=== PATIENT | female | born 1950 | race Caucasian/White ===

== ENCOUNTER → 2018-12-04 | Day surgery (SDC) | payer MEDICARE ==
[2018-11-28 16:10] LABS: BASOPHILS # (AUTO) 0.1 (0.0-0.1); BASOPHILS % 0.5 % (0.0-1.0); EOSINOPHILS # (AUTO) 0.1 (0.0-0.4); EOSINOPHILS % 0.4 % (0.0-6.0); HEMATOCRIT 36.9 % (34.2-44.1); HEMOGLOBIN 12.2 g/dL (12.0-16.0); LYMPHOCYTES # (AUTO) 2.7 (1.0-3.2); LYMPHOCYTES % 21.6 % (18.0-39.1); MEAN CORPUSCULAR HEMOGLOBIN 30.9 pg (28-32); MEAN CORPUSCULAR HGB CONC 33.1 g/dL (31-35); MEAN CORPUSCULAR VOLUME 93.4 fL (81-99); MONOCYTES # (AUTO) 0.8 (0.2-0.8); MONOCYTES % 6.9 % (4.4-11.3); NEUTROPHILS # (AUTO) 8.6 (2.1-6.9); NEUTROPHILS % 70.1 % (38.7-80.0); PLATELET COUNT 419 x10e3/uL (140-360); RED BLOOD COUNT 3.95 x10e6/uL (3.6-5.1); RED CELL DISTRIBUTION WIDTH 13.1 % (11.7-14.4)
[~2018-12-04] MED LIST: BACLOFEN10 MG PO; FENTANYL CITRATE/PF 100MCG/2 ML INJ ONE; GABAPENTIN300 MG PO; HYOSCYAMINE 0.125 MG TAB ONE; IRON PO; MIDAZOLAM HCL 2 MG/2 ML VIAL ONE; NORCO 10-325 T1 EACH; PAXIL40 MG PO; PROPOFOL IV EMULSION 10 MG/ML 50 ML VIAL ONE; REQUIP3 MG PO; SUMATRIPTAN SU100 MG PO
--- OUTSIDE RECORDS SUMMARY | 2018-12-04 09:02 | XMS REPORT | Clinical Summary ---
Author Author [facility] [facility] Organization [facility] Address Unknown Phone Unavailable Care Team Providers Care Algologist Name Role Phone Gia Hopper MD PCP Allergies No Known Allergies Medications End Date Status Medication Sig Dispensed Refills Start Date Active diphenhydrAMINE Take 25 mg by 0 (BENADRYL) 25 mg tablet mouth as needed for allergies or sleep. Active baclofen (LIORESAL) 10 MG Take 10 mg by 0 tablet mouth daily as needed. Active rOPINIRole (REQUIP) 1 MG Take 2 mg by 0 tablet mouth nightly as needed. Active PARoxetine (PAXIL) 30 MG Take 30 mg by 0 tablet mouth every evening. Active HYDROcodone-acetaminophen Take 1 tablet 0 (NORCO) 10-325 mg per by mouth tablet every 6 (six) hours as needed for moderate pain. Active Problems Problem Noted Date S/P lumbar discectomy 08/26/2017 COPD (chronic obstructive pulmonary disease) 08/24/2017 Anemia 08/24/2017 Lumbar stenosis 08/22/2017 Medial meniscus tear 03/29/2017 Family History Medical History Relation Name Comments Alcohol abuse Father Heart disease Mother Hypertension Mother Relation Name Status Comments Brother OF [place]. Father Mother Alive BLOOD CLOTS TO HER LEGS, HAD 2STENTS. Sister AT AGE 2. Social History Date Tobacco Use Types Packs/Day Years Used Current Every Day Smoker Cigarettes, 1 50 Electronic Cigarettes Smokeless Tobacco: Never Used Comments: QUIT 2.5 YEARS AGO.SMOKER SINCE AGE 14. Alcohol Use Drinks/Week oz/Week Comments No Sex Assigned at Date Recorded Not on file Industry Job Start Date Occupation Not on file Not on file Not on file Travel End Travel History Travel Start No recent travel history available. Last Filed Vital Signs Not on file Plan of Treatment Health Maintenance Due Date Last Done Comments BREAST CANCER SCREENING 02/09/2000 COLONOSCOPY SCREENING 02/09/2000 SHINGLES VACCINES (#1) 02/09/2000 65+ PNEUMOCOCCAL VACCINE 2015 (1 of 2 - PCV13) INFLUENZA VACCINE 12/11/2018 Implants Device Identifier Shelf Expiration Date Model / Serial / Lot Implanted Type Area Manufactur er 08/11/2019 [id number] / N/A / [id number] Matrix Dural Duragen Plus 4x5in Human Left: Spine INTEGRA Regnrtn - Sn/A - [id number] Tissue Lumbar LIFESCIENC Implanted: Qty: 1 on 08/22/2017 by Implants Hannah Calrk MD 04/11/2018 [id number] / / [id number] System Sealant Dural Hydrg Tech 5ml Surgical Posterior: INTEGRA Duraseal - [id number] Implants; Spine Lumbar LIFESCIENC Implanted: Qty: 1 on 08/22/2017 by Expanders; Hannah Clark MD Extenders; Surgical Wires 08/10/2018 [id number] / / [id number] System Sealant Dural Hydrg Tech 5ml Surgical Posterior: INTEGRA Duraseal - [id number] Implants; Spine Lumbar LIFESCIENC Implanted: Qty: 1 on 08/22/2017 by Expanders; Hannah Clark MD Extenders; Surgical Wires 05/12/2018 [id number] / / [id number] System Sealant Dural Hydrg Tech 5ml Surgical Posterior: INTEGRA Duraseal - [id number] Implants; Spine Lumbar LIFESCIENC Implanted: Qty: 1 on 08/22/2017 by Expanders; Hannah Clark MD Extenders; Surgical Wires Results Not on fileafter 12/03/2017 Insurance Type Payer Benefit Subscriber ID Effective Phone Address Plan / Dates Group HMO [employer] CIGNA xxxxxxxx 2017-P [facility] Advance Directives Patient has advance care planning documents on file. For more information, nancy reaves contact: Jose C Palacios [address] [place] [address]
--- OUTSIDE RECORDS SUMMARY | 2018-12-04 09:02 | XMS REPORT | Continuity of Care Document ---
Author Author [employer] Organization [employer] Address Unknown Phone Unavailable Care Team Providers Care Mirror Inspector Name Role Phone [employer] Unavailable Unavailable Problems Problem Status Onset Date Classification Date Reported Comments Source LUMBAR Active 09/13/2017 [facility] S83.206A - "UNSP TEAR OF UNSP MENISCUS, Active 01/30/2017 [facility] [place] Medications No Data Provided for This Section Allergies, Adverse Reactions, Alerts No Known Medication Allergies Immunizations No Data Provided for This Section Results No Data Provided for This Section Pathology Reports No Data Provided for This Section Diagnostic Reports Report Value Date Source Knee wo contrast MRI EXAMINATION: MRI of the right knee without contrast HISTORY: - S83.A Unspecified tear of unspecified meniscus, current injury, right knee, initial encounter; medial right knee pain; right knee medial meniscus tear; right knee medial and patellofemoral compartment chondrosis COMPARISON: There are no radiographs available for review. TECHNIQUE: Multiplanar, multisequence magnetic resonance imaging of the right knee is performed with an extremity coil without contrast. FINDINGS: The examination is mildly limited secondary to persistent patient motion artifact on multiple sequences. Menisci: --Medial: There is a focal horizontal undersurface tear involving the body of the medial meniscus (series 3, image 19 and series 4, images 10 through 11). The medial meniscus is otherwise intact. --Lateral: The anterior horn, body, and posterior horn are intact. Ligaments: The cruciate ligaments are intact. The medial collateral ligament and lateral collateral ligament complex are intact. Extensor mechanism: There is minimal proximal and distal patellar tendinosis. The extensor mechanism is intact. Muscles: There is normal signal intensity and muscle bulk of the musculature at the knee. Cartilage: Within the medial compartment, there is mild partial-thickness chondrosis along the weightbearing medial femoral condyle and matching medial aspect of the medial tibial plateau without substantial subchondral edema. Within the lateral compartment, there is no focal chondrosis or subchondral marrow edema. Within the patellofemoral compartment, there is high-grade, near full-thickness to full-thickness chondrosis involving the patellar median ridge and medial patellar facet at the superior to mid poles of the patella with underlying foci of subchondral edema and cyst formation. Partial thickness chondrosis also extends along the medial aspect of the lateral patellar facet at the proximal third of the patella. The trochlear articular cartilage is normal. Bone: Again, there are foci of subchondral edema and cyst formation along the patella. There are no acute fractures. There are no suspicious bone marrow replacing lesions. Soft tissues: There is a physiologic amount of fluid within the knee. There is a small Flores's cyst. IMPRESSION: 1. Focal horizontal undersurface tear involving the body of the right knee medial meniscus. 2. Moderate patellofemoral and mild medial compartment, by compartment chondrosis of the right knee as described in detail above, including foci of subchondral edema and cyst formation along the patellar median ridge and medial patellar facet. 3. Small right knee Flores's cyst. 4. Minimal proximal and distal right patellar tendinosis without tendon tear. 5. Intact right knee cruciate and collateral ligaments. 01/31/2017 OMARI Werner Consultation Notes No Data Provided for This Section Discharge Summaries No Data Provided for This Section History and Physicals No Data Provided for This Section Vital Signs No Data Provided for This Section Encounters Location Location Details Encounter Type Encounter Number Reason For Visit Attending Provider ADM Date DC Date Status Source [facility] [id number] Eduardo West Jr 01/31/2017 02/01/2017 OMARI Werner [facility] OP Therapy Patients [id number] Hannah Ding 09/23/2017 10/23/2017 [facility] Procedures No Data Provided for This Section Assessment and Plan No Data Provided for This Section Plan of Care No Data Provided for This Section Social History Social History Date Source No data available for this section 10/23/2017 [facility] No data available for this section 02/01/2017 OMARI Werner Family History No Data Provided for This Section Advance Directives No Data Provided for This Section Functional Status No Data Provided for This Section
--- OUTSIDE RECORDS SUMMARY | 2018-12-04 09:03 | XMS REPORT | Summary of Care ---
Author Author [facility] Address Unknown Phone Unavailable Encounter [facility] Arnulfor_cris(NEHEMIAS) [id number] Date(s): 09/23/17 - 10/22/17 [facility] Discharge Disposition: Home or Self Care Attending Physician: Hannah Ding MD Vital Signs No data available for this section Problem List No data available for this section Allergies, Adverse Reactions, Alerts No data available for this section Medications No data available for this section Results No data available for this section Immunizations No data available for this section Procedures No data available for this section Social History No data available for this section Assessment and Plan No data available for this section
--- OUTSIDE RECORDS SUMMARY | 2018-12-04 09:03 | XMS REPORT ---
Author Author [facility] Address Unknown Phone Unavailable Care Team Providers Care Para Educator Name Role Phone Unavailable Unavailable Problems This patient has no known problems. Allergies, Adverse Reactions, Alerts This patient has no known allergies or adverse reactions. Medications This patient has no known medications. Results Test Description Test Time Test Comments Text Results Atomic Results Result Comments SCR MAMM BILATERAL CRUZ CAD DIGITAL 2018-11-10 08:18:26 - SCR MAMM BILATERAL CRUZ CAD DIGITALBILATERAL DIGITAL SCREENING MAMMOGRAM 3D/2D WITH CAD: 10/21/2018Digital breast tomosynthesis was performed in addition to routine CC and MLO views. Current mammographic images were evaluated by either a Hotelicopter M- Vu or a toucanBox ImageChecker CAD (computer aided detection system). Comparison is made to exam dated 08/16/2011 mammogram - [facility]. There are scattered fibroglandular tissues in both breasts. There are post operative findings in the left breast. No suspicious mass, architectural distortion, malignant type calcification, or lymph node abnormality detected. Breast architecture is stable compared to prior exams.IMPRESSION: BENIGNThere is no mammographic evidence of malignancy. Resume annual screening mammography in one year. Bakari Francisco M.D. ss/timothy:11/10/2018 08:18:26 Attending Technologist: Jen STAFFORD, [facility]FWImaging Technologist: Bessy STAFFORD, [facility]FWletter sent: BIRADS 1-2 Normal Mammogram BI-RADS: 2 Benign
--- OUTSIDE RECORDS SUMMARY | 2018-12-04 09:03 | XMS REPORT | Summary of Care ---
Author Author [facility] [place] Organization [facility] [place] Address Unknown Phone Unavailable Encounter HQ Encntr_alical(FIN) [id number] Date(s): 01/31/17 - 01/31/17 [facility] [place] [address] [place] [phone] Discharge Disposition: Home or Self Care Attending Physician: Eduardo Cannon MD Vital Signs No data available for [...]
[2018-12-04 12:35] VITALS: BP 119/72
--- NOTE | 2018-12-04 18:55 | Operative Report ---
DATE OF PROCEDURE: 12/04/2018 SURGEON: Emery Ervin MD PROCEDURE: EGD with biopsies and colonoscopy with polypectomy and biopsies. INDICATIONS FOR EGD: Acid reflux. INDICATIONS FOR COLONOSCOPY: Colorectal cancer screening, history of diarrhea, intermittent, and anemia. MEDICATIONS: The patient was done under MAC, please see anesthesiologist's note. PROCEDURE IN DETAIL: With the patient in left lateral decubitus position, a flexible fiberoptic Olympus gastroscope was introduced into the esophagus under direct visualization without any difficulty. There was some patchy erythema noted in distal esophagus. The scope was then advanced with ease into the stomach traversing a large hiatal hernia. Mucosa overlying the antrum and the body revealed some patchy erythema and low-grade to moderate edema. Biopsies were obtained, sent to stain for H pylori. Pylorus was of normal contour and shape, was intubated with ease and the scope was advanced all the way to the second portion of the duodenum. Biopsies were obtained from the second portion and the duodenal bulb to rule out sprue. The scope was then withdrawn back into the stomach and retroflexed and the previously described hiatal hernia was also noted in the retroflexed position. The scope was then straightened out, it was subsequently withdrawn. The patient tolerated the procedure well. IMPRESSION: 1. Mild distal esophagitis. 2. Large hiatal hernia. 3. Gastritis, biopsied. Biopsies sent to stain for H pylori. 4. Rule out sprue. PLAN: Follow up histology. Initiate Protonix 40 mg one p.o. q.a.m. a.c. The patient was then turned around and after adequate lubrication of the anal canal, a flexible fiberoptic Olympus colonoscope was inserted into the rectum with ease and advanced all the way to the cecum. Prep overall was suboptimal, but visualization was fair. The scope was then withdrawn slowly whatever was visualized and the mucosa overlying the cecum appeared to be within normal limits. One polyp was snared from the ascending colon. The transverse, descending, and sigmoid colon were grossly unremarkable within the limits of the exam with some scattered diverticular disease. The mucosa overlying the rectum and the distal sigmoid revealed some patchy areas of erythema and low-grade edema and biopsies were obtained. The scope was then retroflexed into the distal rectum and small internal hemorrhoids were noted, none of which was actively bleeding. The scope was then straightened out, it was subsequently withdrawn. The patient tolerated procedure well. IMPRESSION: 1. Ascending colon polyp, snared. 2. Diverticulosis. 3. Proctitis, mild, biopsied. 4. Internal hemorrhoids, none actively bleeding. PLAN: Follow up histology. Initiate Bentyl 10 mg one p.o. t.i.d. The patient might benefit from a followup colonoscopy in 3 to 5 years. Emery Ervin MD [facility] /[id number] cc: Pradip Arias MD
== END | disposition home or self-care (01) ==
LOC: OR 09:00
PROVIDERS: ATTEND Internal Medicine Gastroenterology
DX: D64.9 Anemia, unspecified (principal); D12.2 Benign neoplasm of ascending colon; K29.70 Gastritis, unspecified, without bleeding; K21.9 Gastro-esophageal reflux disease without esophagitis; K59.00 Constipation, unspecified; K20.9 Esophagitis, unspecified; K44.9 Diaphragmatic hernia without obstruction or gangrene; K57.30 Diverticulosis of large intestine without perforation or abscess without bleeding; K62.89 Other specified diseases of anus and rectum; K64.8 Other hemorrhoids; J44.9 Chronic obstructive pulmonary disease, unspecified; G25.81 Restless legs syndrome; I20.9 Angina pectoris, unspecified; F32.9 Major depressive disorder, single episode, unspecified; F17.290 Nicotine dependence, other tobacco product, uncomplicated; Z01.810 Encounter for preprocedural cardiovascular examination; Z01.812 Encounter for preprocedural laboratory examination; Z68.32 Body mass index [BMI] 32.0-32.9, adult
CPT/HCPCS: 36415; 43239; 45380; 45385; 85025; 93005; J2250; J2704; J3010; 45378; 45384

== ENCOUNTER → 2024-03-04 | Outpatient (REF) | payer MEDICARE ==
[~2024-03-04] MED LIST changes: +AMLODIPINE BESYL5 MG PO; -FENTANYL CITRATE/PF 100MCG/2 ML INJ ONE; -HYOSCYAMINE 0.125 MG TAB ONE; -MIDAZOLAM HCL 2 MG/2 ML VIAL ONE; +NEURONTIN100 MG PO; -NORCO 10-325 T1 EACH; +NORCO 10-325 T1 EACH PO; +OXYBUTYNIN CHLOR5 MG PO; -PROPOFOL IV EMULSION 10 MG/ML 50 ML VIAL ONE
== END ==
LOC: RAD 15:32
PROVIDERS: ATTEND Anesthesiology Addiction Medicine
DX: M25.562 Pain in left knee (principal); M25.561 Pain in right knee; M25.552 Pain in left hip; M25.551 Pain in right hip
CPT/HCPCS: 73522